=== PATIENT | male | born 1965 | race Caucasian/White ===

== ENCOUNTER 2021-09-25 01:59 | Emergency (ER) | payer OTHER ==
[~2021-09-25] VITALS: Ht 175.3 cm; Wt 104.5 kg
[2021-09-25] MEDS ORDERED: CLON1TAB8 (02:09)
[2021-09-25] MEDS ORDERED: METO1TAB33 (02:09)
[2021-09-25] MEDS ORDERED: D-AMPHETAMINE (02:09)
[2021-09-25] MEDS ORDERED: ONDANSETRON 4MG/2ML VIAL IV ONE (04:40)
[2021-09-25] MEDS ORDERED: MORPHINE 4 MG/ML 1ML VIAL/SYRINGE (J2270) IV ONE (04:40)
[2021-09-25 05:41] LABS: BASO % 0.4 % (0.0-1.0); EOS # 0.1 10^3/uL (0.0-0.5); EOS % 0.9 % (0.0-3.0); HEMATOCRIT 42.9 % (42.0-52.0); HEMOGLOBIN 14.6 g/dl (13.5-17.5); LYMPH # 1.9 10^3/uL (1.5-5.0); LYMPH % 24.6 % (24.0-44.0); MEAN CORPUSCULAR HEMOGLOBIN 29.4 pg (27.0-33.0); MEAN CORPUSCULAR VOLUME 86.5 fl (80.0-96.0); MONO # 0.7 10^3/uL (0.0-0.8); NEUTROPHILS % 64.7 % (36.0-66.0); PLATELET COUNT, AUTOMATED 222 10^3/uL (150-450); RED BLOOD COUNT 4.96 10^6/uL (4.30-6.10); WHITE BLOOD COUNT 7.8 10^3/uL (4.0-10.0)
[2021-09-25 06:04] LABS: ALBUMIN 3.7 GM/DL (3.2-5.2); ALT/SGPT 28 U/L (12-78); BILIRUBIN,TOTAL 0.4 MG/DL (0.2-1.0); BLOOD UREA NITROGEN 9 MG/DL (7-18); CALCIUM LEVEL 8.4 MG/DL (8.5-10.1); CARBON DIOXIDE LEVEL 25 MEQ/L (21-32); CHLORIDE LEVEL 108 MEQ/L (98-107); CK-MB VALUE MASS < 1.0 NG/ML (<3.6); CPK CREATINE PHOSPHOKINASE 113 U/L (39-308); CREATININE FOR GFR 0.87 MG/DL (0.70-1.30); GLOMERULAR FILTRATION RATE > 60.0 (>56); GLUCOSE, FASTING 109 MG/DL (70-100); LIPASE 129 U/L (73-393); MB/CK RELATIVE INDEX 0.88 (< OR =4); POTASSIUM SERUM 3.8 MEQ/L (3.5-5.1); SODIUM LEVEL 139 MEQ/L (136-145); TOTAL PROTEIN 6.7 GM/DL (6.4-8.2)
[2021-09-25] MEDS ORDERED: HYDROMORPHONE HCL 0.5 MG/ 0.5 ML SYRINGE (J1170 PER 1) IV ONE (06:35)
[2021-09-25 07:08] LABS: AMPHETAMINES LEVEL URINE POSITIVE (NEGATIVE); BARBITURATES URINE NEGATIVE (NEGATIVE); BENZODIAZEPINES URINE NEGATIVE (NEGATIVE); CANNABINOIDS URINE NEGATIVE (NEGATIVE); COCAINE METABOLITE URINE NEGATIVE (NEGATIVE); METHADONE URINE NEGATIVE (NEGATIVE); OPIATES URINE POSITIVE (NEGATIVE); PHENCYCLIDINE URINE NEGATIVE (NEGATIVE)
[2021-09-25] MEDS ORDERED: PERC10TA26 PO (10:31)
[2021-09-25 10:46] VITALS: BP 155/101
== END 2021-09-25 10:52 | disposition home or self-care (01) ==
LOC: M ED 01:59
DX: K65.4 Sclerosing mesenteritis (principal); F11.20 Opioid dependence, uncomplicated; I10 Essential (primary) hypertension; M54.9 Dorsalgia, unspecified; F17.200 Nicotine dependence, unspecified, uncomplicated; Z88.6 Allergy status to analgesic agent; Z88.5 Allergy status to narcotic agent
CPT/HCPCS: 71045; 74176; 80053; 80307; 81001; 82550; 82553; 83605; 83690; 84484; 85025; 86140; 87040; 87798; 96374; 96375; 99284; J1170; J2270; J2405

== ENCOUNTER 2021-10-02 00:44 | Emergency (ER) | payer OTHER ==
[~2021-10-02] VITALS: Ht 175.3 cm; Wt 105.8 kg
[~2021-10-02 00:44] MED LIST: CLON1TAB8; D-AMPHETAMINE; METO1TAB33; PERC10TA26 PO
[2021-10-02] MEDS ORDERED: ADDE30CA3 PO (00:57)
[2021-10-02 01:42] LABS: BASO % 0.3 % (0.0-1.0); EOS # 0.1 10^3/uL (0.0-0.5); EOS % 0.9 % (0.0-3.0); HEMATOCRIT 45.3 % (42.0-52.0); HEMOGLOBIN 15.1 g/dl (13.5-17.5); LYMPH # 1.9 10^3/uL (1.5-5.0); LYMPH % 13.4 % (24.0-44.0); MEAN CORPUSCULAR HEMOGLOBIN 29.3 pg (27.0-33.0); MEAN CORPUSCULAR HGB CONC 33.3 g/dl (32.0-36.5); MONO # 1.5 10^3/uL (0.0-0.8); MONO % 10.9 % (2.0-8.0); NEUTROPHILS # 10.3 10^3/uL (1.5-8.5); NEUTROPHILS % 74.1 % (36.0-66.0); PLATELET COUNT, AUTOMATED 234 10^3/uL (150-450); RED BLOOD COUNT 5.15 10^6/uL (4.30-6.10); WHITE BLOOD COUNT 13.9 10^3/uL (4.0-10.0)
[2021-10-02 02:14] LABS: ALBUMIN 3.6 GM/DL (3.2-5.2); ALT/SGPT 51 U/L (12-78); BILIRUBIN,DIRECT < 0.1 MG/DL (0.0-0.2); BILIRUBIN,TOTAL 0.3 MG/DL (0.2-1.0); BLOOD UREA NITROGEN 13 MG/DL (7-18); CALCIUM LEVEL 8.8 MG/DL (8.5-10.1); CARBON DIOXIDE LEVEL 26 MEQ/L (21-32); CHLORIDE LEVEL 105 MEQ/L (98-107); CREATININE FOR GFR 0.97 MG/DL (0.70-1.30); GLOMERULAR FILTRATION RATE > 60.0 (>56); GLUCOSE, FASTING 143 MG/DL (70-100); LIPASE 72 U/L (73-393); POTASSIUM SERUM 4.1 MEQ/L (3.5-5.1); SODIUM LEVEL 137 MEQ/L (136-145)
[2021-10-02] MEDS ORDERED: ISOVUE-370 76% 100ML VIAL As Ordered ONE (02:59)
[2021-10-02] MEDS ORDERED: PROMETHAZINE INJ 25 MG/ML VIAL (J2550) IV ONE (03:00)
[2021-10-02] MEDS ORDERED: NS 1,000 ML IV ONE (03:00)
[2021-10-02] MEDS ORDERED: ONDANSETRON 4MG/2ML VIAL IV ONE (03:55)
[2021-10-02] MEDS ORDERED: HYDROMORPHONE HCL 0.5 MG/ 0.5 ML SYRINGE (J1170 PER 1) IV ONE (04:00)
[2021-10-02 05:30] VITALS: BP 151/90
[2021-10-02] MEDS ORDERED: ONDA4TAB6 PO (05:49)
[2021-10-02] MEDS ORDERED: PERC5TAB12 PO (05:49)
== END 2021-10-02 06:02 | disposition home or self-care (01) ==
LOC: M ED 00:44
DX: F11.20 Opioid dependence, uncomplicated (principal); K65.4 Sclerosing mesenteritis; I10 Essential (primary) hypertension; G89.29 Other chronic pain; M54.9 Dorsalgia, unspecified; F17.200 Nicotine dependence, unspecified, uncomplicated; Z79.899 Other long term (current) drug therapy; Z88.6 Allergy status to analgesic agent; Z88.5 Allergy status to narcotic agent
CPT/HCPCS: 71045; 74177; 80048; 80076; 83605; 83690; 85025; 93041; 96361; 96374; 96375; 99285; J1170; J2405; Q9967

== ENCOUNTER 2021-10-08 00:36 | Emergency (ER) | payer OTHER ==
[~2021-10-08] VITALS: Ht 175.3 cm; Wt 106.5 kg
[~2021-10-08 00:36] MED LIST changes: +ADDE30CA3 PO; +ONDA4TAB6 PO; +PERC5TAB12 PO
[2021-10-08 03:15] VITALS: BP 139/87
[2021-10-08] MEDS ORDERED: PANTOPRAZOLE 40MG VIAL (C9113 PER 1) IV ONE (07:30)
[2021-10-08 07:52] LABS: BASO % 0.4 % (0.0-1.0); EOS # 0.1 10^3/uL (0.0-0.5); EOS % 1.4 % (0.0-3.0); HEMATOCRIT 45.6 % (42.0-52.0); HEMOGLOBIN 15.4 g/dl (13.5-17.5); LYMPH % 23.3 % (24.0-44.0); MEAN CORPUSCULAR HEMOGLOBIN 29.2 pg (27.0-33.0); MEAN CORPUSCULAR HGB CONC 33.8 g/dl (32.0-36.5); MEAN CORPUSCULAR VOLUME 86.5 fl (80.0-96.0); MONO # 0.9 10^3/uL (0.0-0.8); MONO % 9.9 % (2.0-8.0); NEUTROPHILS # 5.5 10^3/uL (1.5-8.5); NEUTROPHILS % 64.5 % (36.0-66.0); PLATELET COUNT, AUTOMATED 232 10^3/uL (150-450); RED BLOOD COUNT 5.27 10^6/uL (4.30-6.10); WHITE BLOOD COUNT 8.6 10^3/uL (4.0-10.0)
[2021-10-08] MEDS ORDERED: PERCOCET 5MG/325MG TAB PO ONE (08:00)
[2021-10-08] MEDS ORDERED: ISOVUE-370 76% 100ML VIAL As Ordered ONE (08:03)
[2021-10-08 08:18] LABS: CK-MB VALUE MASS < 1.0 NG/ML (<3.6); CPK CREATINE PHOSPHOKINASE 96 U/L (39-308); MB/CK RELATIVE INDEX 1.04 (< OR =4)
[2021-10-08 08:33] LABS: ALBUMIN 3.8 GM/DL (3.2-5.2); ALT/SGPT 36 U/L (12-78); BILIRUBIN,DIRECT 0.1 MG/DL (0.0-0.2); BILIRUBIN,TOTAL 0.5 MG/DL (0.2-1.0); ETHYL ALCOHOL (ETHANOL) < 0.003 % (0.000-0.010); LIPASE 82 U/L (73-393); TOTAL PROTEIN 7.4 GM/DL (6.4-8.2)
[2021-10-08 08:47] LABS: AMPHETAMINES LEVEL URINE POSITIVE (NEGATIVE); BARBITURATES URINE NEGATIVE (NEGATIVE); BENZODIAZEPINES URINE NEGATIVE (NEGATIVE); CANNABINOIDS URINE NEGATIVE (NEGATIVE); COCAINE METABOLITE URINE NEGATIVE (NEGATIVE); METHADONE URINE NEGATIVE (NEGATIVE); OPIATES URINE NEGATIVE (NEGATIVE); PHENCYCLIDINE URINE NEGATIVE (NEGATIVE)
== END 2021-10-08 11:56 | disposition home or self-care (01) ==
LOC: M ED 00:36
DX: F11.20 Opioid dependence, uncomplicated (principal); G89.29 Other chronic pain; I88.0 Nonspecific mesenteric lymphadenitis; K57.30 Diverticulosis of large intestine without perforation or abscess without bleeding; N20.0 Calculus of kidney; I10 Essential (primary) hypertension; J45.909 Unspecified asthma, uncomplicated; F17.200 Nicotine dependence, unspecified, uncomplicated; Z79.899 Other long term (current) drug therapy; Z88.6 Allergy status to analgesic agent; Z88.5 Allergy status to narcotic agent
CPT/HCPCS: 74177; 80047; 80076; 80307; 82077; 82550; 82553; 83690; 84484; 85025; 93005; 93041; 94760; 96374; 99284; C9113; Q9967

== ENCOUNTER 2021-10-18 01:19 | Emergency (ER) | payer OTHER ==
[~2021-10-18] VITALS: Ht 175.3 cm; Wt 104.5 kg
[2021-10-18 06:30] VITALS: BP 141/89
[2021-10-18] MEDS ORDERED: CLON0.1D3 TOP (08:02)
== END 2021-10-18 08:39 | disposition home or self-care (01) ==
LOC: M ED 01:19
DX: F11.20 Opioid dependence, uncomplicated (principal); G89.29 Other chronic pain; Z76.5 Malingerer [conscious simulation]; Z79.899 Other long term (current) drug therapy; Z88.6 Allergy status to analgesic agent

== ENCOUNTER 2024-10-11 01:47 | Emergency (ER) | payer OTHER ==
[~2024-10-11] VITALS: Ht 172.7 cm; Wt 91.2 kg
[~2024-10-11 01:47] MED LIST changes: +CLON0.1D3 TOP; +ONDA-282 PO; -ONDA4TAB6 PO
[2024-10-11 08:56] VITALS: BP 132/87; TEMP 98; O2SAT 99
[2024-10-11] MEDS: ONDANSETRON 4MG ORAL DISINTEGRATING TAB PO ONE (11:23)
[2024-10-11] MEDS: BENZOCAINE 20% GEL 9GM TUBE (ANBESOL MAX STRENGTH) TOP ONE (11:24)
[2024-10-11] MEDS: LIDOCAINE 2% W/ EPINEPHRINE 1.7 ML DENTAL INJ SM ONE (11:24)
[2024-10-11] MEDS ORDERED: AMOX875T2 PO (11:55)
[2024-10-11] MEDS: AUGMENTIN 875 MG TAB PO ONE (12:00)
== END 2024-10-11 12:10 | disposition home or self-care (01) ==
LOC: M ED 01:47
DX: K04.7 Periapical abscess without sinus (principal); K02.9 Dental caries, unspecified; I10 Essential (primary) hypertension; M54.9 Dorsalgia, unspecified; F11.20 Opioid dependence, uncomplicated; Z79.899 Other long term (current) drug therapy; Z88.5 Allergy status to narcotic agent; Z88.6 Allergy status to analgesic agent